=== PATIENT | male | born 1995 | race Caucasian/White ===

== ENCOUNTER 2018-06-24 08:20 | Emergency (ER) | payer OTHER ==
[2018-06-24 08:24] VITALS: BP 143/78
[2018-06-24] MEDS ORDERED: AMOXICILLIN TRIHYDRATE 500 MG CAPSULE PO ONE (08:59)
[2018-06-24] MEDS ORDERED: LIDOCAINE 2% URO-JET 5 ML KIT MM ONE (09:00)
[2018-06-24] MEDS ORDERED: DEXAMETHASONE 4 MG TABLET PO ONE (09:01)
--- NOTE | 2018-06-24 09:07 | ER Document Report ---
ED General - General Chief Complaint: Ear Pain Stated Complaint: EAR PAIN Time Seen by Provider: 06/24/18 08:30 TRAVEL OUTSIDE OF THE [place] IN LAST 30 DAYS: No - HPI Patient complains to provider of: Left ear pain Notes: Patient coming in with URI type symptoms ongoing for the last week now developed left ear pain for the last 3 days. Patient denies any fevers however states he was having a sore throat nasal congestion. Patient otherwise resting comfortably upon my evaluation denies any recent antibiotics denies any airplane travel scuba diving denies any trauma to the ear. - Related Data Allergies/Adverse Reactions: No Known Allergies Allergy (Verified 06/24/18 08:21) Past Medical History - Social History Smoking Status: Unknown if Ever Smoked Family History: Reviewed & Not Pertinent Review of Systems - Review of Systems Constitutional: No symptoms reported EENT: Ear pain Cardiovascular: No symptoms reported Respiratory: No symptoms reported Gastrointestinal: No symptoms reported Genitourinary: No symptoms reported Male Genitourinary: No symptoms reported Musculoskeletal: No symptoms reported Skin: No symptoms reported Hematologic/Lymphatic: No symptoms reported Neurological/Psychological: No symptoms reported -: Yes All other systems reviewed and negative Physical Exam - Vital signs Vitals: Temp Pulse Resp BP Pulse Ox 98.1 F 67 14 143/78 H 97 06/24/18 08:24 06/24/18 08:24 06/24/18 08:24 06/24/18 08:24 06/24/18 08:24 Interpretation: Normal - General General appearance: Appears well, Alert - HEENT Head: Normocephalic, Atraumatic Eyes: Normal Cornea: Normal Extraocular movements intact: Yes Eyelashes: Normal Pupils: PERRL Ears: Normal External canal: Normal Tympanic membrane: Injected - Left right normal, Purulent effusion - Left right normal Sinus: Normal Nasal: Normal Mouth/Lips: Normal Pharynx: Normal Neck: Normal - Respiratory Respiratory status: No respiratory distress Chest status: Nontender Breath sounds: Normal Chest palpation: Normal - Cardiovascular Rhythm: Regular Heart sounds: Normal auscultation Murmur: No - Abdominal Inspection: Normal Distension: No distension Bowel sounds: Normal Tenderness: Nontender Organomegaly: No organomegaly - Back Back: Normal, Nontender - Extremities General upper extremity: Normal inspection, Nontender, Normal color, Normal ROM, Normal temperature General lower extremity: Normal inspection, Nontender, Normal color, Normal ROM, Normal temperature, Normal weight bearing. No: Princess's sign - Neurological Neuro grossly intact: Yes Cognition: Normal Orientation: AAOx4 [place] Coma Scale Eye Opening: Spontaneous [place] Coma Scale Verbal: Oriented [place] Coma Scale Motor: Obeys Commands [place] Coma Scale Total: 15 Speech: Normal Motor strength normal: LUE, RUE, LLE, RLE Sensory: Normal - Psychological Associated symptoms: Normal affect, Normal mood - Skin Skin Temperature: Warm Skin Moisture: Dry Skin Color: Normal Course - Re-evaluation Re-evalutation: 06/24/18 15:11 Examination consistent with a left otitis media. Patient was discharged home on amoxicillin. - Vital Signs Vital signs: Temp Pulse Resp BP Pulse Ox 98.1 F 67 14 143/78 H 97 06/24/18 08:24 06/24/18 08:24 06/24/18 08:24 06/24/18 08:24 06/24/18 08:24 Discharge - Discharge Clinical Impression: Otitis media Qualifiers: Otitis media type: unspecified Laterality: unspecified laterality Qualified Code(s): H66.90 - Otitis media, unspecified, unspecified ear Condition: Good Disposition: HOME, SELF-CARE Instructions: Amoxicillin ([facility]), Otitis Media ([facility]) Additional Instructions: Your evaluation is consistent with a ear infection or otitis media. Please continue to take Tylenol and Motrin for pain control you may use the lidocaine gel instilled small amount inside your ear at nighttime to help out with pain. Return to ER symptoms worsen follow-up with your primary care physician in 1-2 weeks Prescriptions: Amoxicillin 1 tab PO TID #30 tab Forms: Return to Work
== END 2018-06-24 09:16 | disposition home or self-care (01) ==
LOC: ER 08:20
DX: H66.92 Otitis media, unspecified, left ear (principal)
CPT/HCPCS: 99282; J3490